=== PATIENT | female | born 1980 | race Two or more races ===

== ENCOUNTER → 2024-05-08 | Outpatient (CLI) | payer MEDICAID, SELFPAY ==
--- NOTE | 2024-05-08 10:21 | XR_ITS ---
Examination: Abdomen AP single view Technique: AP portable supine abdomen, single view Exam date and time: May 08, 2024 1120 hours INDICATIONS: Abdominal pain and distention one year FINDINGS: Moderate air and stool throughout the colon No obstruction No free air Moderate narrowing hip joints IMPRESSION: Moderate air and stool throughout
== END | disposition home or self-care (01) ==
PROVIDERS: PCP Physician Assistant; Referring Provider Physician Assistant; Visit Provider Physician Assistant
DX: K59.00 Constipation, unspecified (principal)
CPT/HCPCS: 74018